=== PATIENT | male | born 1980 | race Caucasian/White ===

== ENCOUNTER 2019-09-12 05:57 | Emergency (ER) | payer OTHER | END 2019-09-12 07:56 | disposition other institution (70) | LOC: ED 05:57 | DX: Z02.89 Encounter for other administrative examinations (principal) ==

== ENCOUNTER 2019-09-12 05:57 | Emergency (ER) | payer SELFPAY ==
[~2019-09-12] VITALS: Ht 167.6 cm; Wt 74.8 kg
[2019-09-12 07:56] VITALS: BP 130/82
== END 2019-09-12 07:56 | disposition other institution (70) ==
LOC: ED 05:57
DX: S13.4XXA Sprain of ligaments of cervical spine, initial encounter (principal); S00.81XA Abrasion of other part of head, initial encounter; F10.20 Alcohol dependence, uncomplicated; V49.09XA Driver injured in collision with other motor vehicles in nontraffic accident, initial encounter; Y93.I9 Activity, other involving external motion; Y92.413 State road as the place of occurrence of the external cause; Y99.8 Other external cause status
CPT/HCPCS: 90715